=== PATIENT | female | born 1970 | race Caucasian/White ===

== ENCOUNTER → 2017-01-28 | Outpatient (CLI) | payer OTHER | LOC: FIMAGING 13:53 | DX: Z12.31 Encounter for screening mammogram for malignant neoplasm of breast (principal) | CPT/HCPCS: G0202 ==

== ENCOUNTER → 2018-11-10 | Outpatient (CLI) | payer OTHER | LOC: FIMAGING 12:16 | PROVIDERS: ATTEND Obstetrics & Gynecology | DX: Z12.31 Encounter for screening mammogram for malignant neoplasm of breast (principal) ==

== ENCOUNTER 2019-01-06 05:32 | Observation (INO) | payer OTHER ==
--- NOTE | 2019-01-05 23:49 | GHP ---
[f rep st] PREOP HISTORY AND PHYSICAL DATE OF ADMISSION: 01/06/2019 Patient slated for surgery on 01/06/2019 on the gynecology service. PREOPERATIVE HISTORY: Patient is a 48-year-old G0 white female with many years of menorrhagia with history of uterine fibroids. The patient was managed with a myomectomy laparoscopically in approximately 2009 at which time the patient was told Dr. Sanchez Wu removed 20 fibroids. Initially, menses were improved , however, have returned to the significant menorrhagia of the past. Patient reports 2-4 days of her menstrual cycle the patient has extremely heavy flow, changing a super plus tampon every 2 hours. The menstrual cycles themselves are every 21 days. The patient had an ultrasound performed in September at which time the uterus was noted to be enlarged with multiple fibroids. The largest fibroid is 7 x 7 x 7 cm with a 5 cm cystic interior. Next largest fibroid is 5 x 5 x 5 cm and many other smaller fibroids. The largest fibroid with the cystic interior is not typical. EMT is 1 cm. EMBx shows disordered endometrium. Discussions were had with Dr. Perez, [employer] in [place] and she felt this was likely benign cystic change of the fibroid. She states commonly frozen sections for this presentation are not very helpful and surgical staging is controversial. Dr. Perez did not feel the patient needed to be taken to the operating room by a [facility] oncologist. The patient was given Lysteda to help reduce the heavy flow and the options were continued observation versus proceeding to surgery. Lysteda dramatically reduced the flow, but still wants to proceed with definitive management with a total laparoscopic hysterectomy, bilateral salpingectomies. The pluses and minuses of ovarian removal were discussed with the patient at the time of preop. The patient is undecided and will consider her options and inform me on the date of surgery with her decision. On the morning of surgery the patient states she wants to retain ovaries if possible. PAST MEDICAL HISTORY: Negative. PAST SURGICAL HISTORY: Laparoscopic myomectomy [place] [address] Wu. PAST OBSTETRIC HISTORY: Negative. Two adopted female children. CURRENT MEDICATIONS: Only Lysteda that the patient uses 2-3 times a day on her menstrual flow. Last menstrual flow was December 13. SOCIAL HISTORY: The patient is a nonsmoker and has no prior history. No marijuana us or CBD oil. No sleep aids at this point. The patient's recently of pancreatic cancer, and the patient wants to proceed with surgery given the questionable appearance of the 1 cystic fibroid. ALLERGIES: The patient has no known drug allergies. PHYSICAL EXAMINATION: At the time of the preop: GENERAL APPEARANCE: The patient is a well-developed, well-nourished white female in no physical discomfort. VITAL SIGNS: The patient's blood pressure 102/56, weight 157.8 pounds. LUNGS: Clear to auscultation bilaterally. CARDIOVASCULAR: Regular rate and rhythm. ABDOMEN: Soft and nontender. There is a palpable fullness in the pelvis. PELVIC: There are normal external genitalia. A sterile speculum was performed. Cervix appeared normal and was wiped with Betadine scrubs x4. Gentle traction applied and endometrial aspirate with Vabra aspirator was used to obtain a moderate amount of tissue. EXTREMITIES: Nontender. No edema. nl DTRs. ASSESSMENT: Menorrhagia with thickened endometrium of 1 cm, large uterine fibroids. Uterus has a large 7 cm cystic fibroid. The patient's surgery is , total laparoscopic hysterectomy and bilat salpingectomy. PLAN: Proceed with the above-named procedure. The patient will be given preoperative antibiotics and have SCDs on her lower extremities through surgery. /[id number]/MODL MTDD
[2019-01-06] MEDS ORDERED: ceFAZolin 2 GM/DEXTROSE 100 ML IV ONE (05:49)
[2019-01-06] MEDS ORDERED: LR 1,000 ML IV SCH ×2 (05:49→11:00)
[2019-01-06 06:23] LABS: PLATELET COUNT 147 10^3/uL (150-400)
--- NOTE | 2019-01-06 06:47 | PDANEPAE ---
ANE Past Medical History - Cardiovascular History Hx Hypertension: No Hx Arrhythmias: No Hx Chest Pain: No Hx Coronary Artery / Peripheral Vascular Disease: No Hx CHF / Valvular Disease: No Hx Palpitations: No - Pulmonary History Hx COPD: No Hx Asthma/Reactive Airway Disease: No Hx Recent Upper Respiratory Infection: No Hx Oxygen in Use at Home: No Hx Sleep Apnea: No Sleep Apnea Screening Result - Last Documented: Negative - Neurologic History Hx Cerebrovascular Accident: No Hx Seizures: No Hx Dementia: No - Endocrine History Hx Diabetes: No Hypothyroid: No Hyperthyroid: No Obesity: no - Renal History Hx Renal Disorders: No - Liver History Hx Hepatic Disorders: No - Neurological & Psychiatric Hx Hx Neurological and Psychiatric Disorders: No - Cancer History Hx Cancer: No - Congenital Disorder History Hx Congenital Disorders: No - GI History Hx Gastrointestinal Disorders: No - Other Health History Other Health History: anemia. wears glasses. occ eczema- resolves itself - Chronic Pain History Chronic Pain: No - Surgical History Prior Surgeries: myomectomy ANE Review of Systems Review of Systems: - Exercise capacity METS (RN): 4 METS ANE Patient History - Allergies Allergies/Adverse Reactions: No Known Allergies Allergy (Verified 12/25/18 11:20) - Home Medications Home Medications: NK [No Known Home Meds] 12/24/18 [Last Taken Unknown] - NPO status NPO Since - Liquids (Date): 01/06/19 NPO Since - Liquids (Time): 04:45 NPO Since - Solids (Date): 01/05/19 NPO Since - Solids (Time): 19:00 - Anes Hx Anes Hx: no prior problems - Smoking Hx Smoking Status: Never smoked Marijuana use: No - Alcohol Use Alcohol Use: Other (2 drinks/week) - Family Anes Hx Family Anes Hx: none Family Hx Anesthesia Complications: none ANE Labs/Vital Signs - Labs Result Diagrams: 01/06/19 05:49 01/06/19 05:49 - Vital Signs Blood Pressure: 121/68 Heart Rate: 73 Respiratory Rate: 18 O2 Sat (%): 97 Height: 177.8 cm Weight: 71.668 kg ANE Physical Exam - Airway Neck exam: FROM Mallampati Score: Class 1 - Pulmonary Pulmonary: clear to auscultation - Cardiovascular Cardiovascular: regular rate and rhythym - ASA Status ASA Status: II ANE Anesthesia Plan Anesthesia Plan: general endotracheal anesthesia
[2019-01-06] MEDS ORDERED: MIDAZOLAM 2 MG/2 ML VIAL IVP ONE (06:51)
[2019-01-06] MEDS ORDERED: SURGIFLO MATRIX KIT WITH THROMBIN 8 ML TP ONE (06:56)
[2019-01-06] MEDS ORDERED: BUPIVACAINE 0.5% 30 ML SDV ONE (06:56)
[2019-01-06] MEDS ORDERED: METHYLENE BLUE 0.5% 50 MG/10 ML AMP ONE (06:56)
[2019-01-06] MEDS ORDERED: fentaNYL 250 MCG/5 ML INJ ONE (06:58)
[2019-01-06] MEDS ORDERED: PROPOFOL/EMULSION 500 MG/50 ML BOTTLE IV ONE (06:58)
[2019-01-06] MEDS ORDERED: ROCURONIUM 50 MG/5 ML VIAL ONE (06:58)
[2019-01-06] MEDS ORDERED: DEXAMETHASONE 4 MG/ML VIAL ONE ×2 (06:59)
[2019-01-06] MEDS ORDERED: LIDOCAINE 2% 5 ML SDV ONE ×2 (07:11→08:50)
[2019-01-06] MEDS ORDERED: PHENYLEPHRINE HCL 100 MCG/ML SYR ONE (08:07)
[2019-01-06] MEDS ORDERED: PROPOFOL 200 MG/20 ML VIAL ONE ×2 (08:59→09:59)
[2019-01-06] MEDS ORDERED: ONDANSETRON 4 MG/2 ML VIAL ONE (10:05)
[2019-01-06] MEDS ORDERED: SUGAMMADEX SODIUM 200 MG/2 ML VIAL IVP ONE (10:15)
[2019-01-06] MEDS ORDERED: oxyCODONE IR 5 MG TAB PO PRN (10:59)
[2019-01-06] MEDS ORDERED: fentaNYL 100 MCG/2 ML INJ ONE (11:01)
--- NOTE | 2019-01-06 11:04 | POSTOPPROG ---
Post Op Note Date of Operation: 01/06/19 Surgeon: Barbara Mata [employer] Supervisor: Harpreet Gilbert MD Anesthesiologist: Stiven Rain MD Anesthesia: GET(General Endotracheal) Pre-op Diagnosis: menorrhagia, uterine fibroids Post-op Diagnosis: same Indication: yrs of menorrhagia - LSC myomect in '10, EMBx nl, mult fibr- 5-7 cms Procedure: TLH, BS Findings: bulky wide ut - mult irreg fibr, added time for morcellation- bag - 3 ' case Inf/Abcess present in the surg proc area at time of surgery?: No Depth: Organ Space EBL: 50-100 (100cc) Total fluids administered: 1200 Complications: none. added time for manipulation and then morcellation vaginally added approx 20-30 min, little scar, hyperemic uterine surface with inflamm vesicular rxn, [place] bag - introduced vaginally to have ut/tubes in bag for morcellation - upon entry into largest fibroid - serous fluid obtained and interior had very mucosy appearance. ov appeared normal and ureters seen bilat with nl peristalsis. Bowel Protocol: Yes Clean Closure Performed: Yes Specimen(s): morcellated uterus and tubes bilat
[2019-01-06] MEDS ORDERED: HYDROmorphONE/DILAUDID 1 MG/ML INJ IVP PRN (11:05)
[2019-01-06] MEDS ORDERED: NALOXONE HCL 0.4 MG/ML INJ IVP PRN (11:05)
[2019-01-06] MEDS ORDERED: fentaNYL 100 MCG/2 ML INJ IVP PRN (11:05)
[2019-01-06] MEDS ORDERED: PROMETHAZINE HCL 25 MG/ML INJ IVP PRN (11:05)
[2019-01-06] MEDS ORDERED: ACETAMINOPHEN 325 MG TAB ONE (11:29)
[2019-01-06] MEDS: ACETAMINOPHEN 325 MG TAB PO PRN ×3 (11:30→23:35)
--- NOTE | 2019-01-06 11:43 | POSTANESTH ---
Post Anesthetic Evaluation Cardiovascular Status: Normal, Stable Respiratory Status: Normal, Stable Level of Consciousness/Mental Status: Can Participate in Eval Pain Control: Adequate, Prn Tx Ordered Nausea/Vomiting Control: Adequate, Prn Tx Ordered Complications Possibly Related to Anesthesia: None Noted
[2019-01-06] MEDS: KETOROLAC 30 MG/1 ML SDV IVP SCH ×2 (16:53→23:36)
--- NOTE | 2019-01-06 18:39 | SOAPPROG ---
SOAP Progress Note Assessment/Plan: Assessment: POD 1/2 s/p TLH, BS Plan: Desires d/c in am 01/06/19 18:36 Subjective: Pt doing well. Bld is scant, able to urinate without problems. Sindhu reg diet and no nausea. Feeling no pain at this point - getting toradol and tyl. Has been UOB with walking to BR. some dizziness with sitting up for a while Objective: Vital Signs Temp Pulse Resp BP Pulse Ox 36.3 C 78 15 98/55 L 96 01/06/19 15:00 01/06/19 15:00 01/06/19 15:00 01/06/19 15:00 01/06/19 15:00 Laboratory Results 01/06/19 05:49 01/06/19 05:49 01/05/19 01/06/19 01/07/19 05:59 05:59 05:59 Intake Total 1250 Output Total 565 Balance 685 Physical Exam - Physical Exam General Appearance: WD/WN, alert, no apparent distress Abdomen: non-tender, soft, other (3 incision sites with bandaides - CDI) Pelvic Exam: vaginal bleeding (scant) Extremities: non-tender Neuro/Psych: alert, normal mood/affect ICD10 Worksheet Patient Problems: Problems Problem Status Onset S/P laparoscopic hysterectomy Acute Status post bilateral salpingectomy Acute
[2019-01-07] MEDS: ACETAMINOPHEN 325 MG TAB PO PRN (05:39)
[2019-01-07] MEDS: KETOROLAC 30 MG/1 ML SDV IVP SCH (05:39)
[2019-01-07 06:09] LABS: PLATELET COUNT 125 10^3/uL (150-400)
[2019-01-07] MEDS ORDERED: ENOXAPARIN 40 MG/0.4 ML SYR SC SCH (09:00)
--- NOTE | 2019-01-07 10:28 | SOAPPROG ---
SOAP Progress Note Assessment/Plan: Assessment: POD 1 s/p TLH, BS Plan: D/C home 01/06/19 18:36 01/07/19 10:25 Subjective: Doing great. Denies pain. using toradol and tyl combo only. urinating fine. scant spotting. no nausea and rishabh reg diet. ready for d/c. discussed mild anemia Objective: Vital Signs Temp Pulse Resp BP Pulse Ox 36.9 C 68 14 93/57 L 96 01/07/19 05:30 01/07/19 05:30 01/07/19 05:30 01/07/19 05:30 01/07/19 05:30 Laboratory Results 01/07/19 05:48 01/06/19 05:49 01/06/19 01/07/19 01/08/19 05:59 05:59 05:59 Intake Total 1650 Output Total 1865 Balance -215 ICD10 Worksheet Patient Problems: Problems Problem Status Onset Status post bilateral salpingectomy Acute S/P laparoscopic hysterectomy Acute
[2019-01-07 10:42] VITALS: BP 103/62
[2019-01-07] MEDS ORDERED: IBUPROFEN 600 MG TAB PO SCH (11:00)
== END 2019-01-07 11:30 | disposition home or self-care (01) ==
LOC: F3N 05:32 → FOB 12:00
PROVIDERS: ADMIT Obstetrics & Gynecology; ATTEND Obstetrics & Gynecology
DX: D25.9 Leiomyoma of uterus, unspecified (principal); N92.1 Excessive and frequent menstruation with irregular cycle; D64.9 Anemia, unspecified
CPT/HCPCS: 58573; G0378; J0690; J1100; J1885; J2250; J2370; J2405; J2704; J3010; Q9968